=== PATIENT | male | born 2000 | race Caucasian/White ===

== ENCOUNTER 2019-02-01 16:02 | Emergency (ER) | payer MEDICAID ==
[~2019-02-01] VITALS: Ht 167.6 cm; Wt 79.4 kg
[2019-02-01 16:02] VITALS: BP 120/75
--- NOTE | 2019-02-01 16:02 | NUR ---
EDMD EVALUATING PT AT BEDSIDE
--- NOTE | 2019-02-01 16:02 | NUR ---
Patient biba to ER bed 8
--- NOTE | 2019-02-01 16:02 | NUR ---
PATIENT BIB ALS TO ER BED 8.
[2019-02-01] MEDS ORDERED: levETIRAcetam 1,000 MG in NACL 0.9% 100 ML IV ONE (16:15)
--- NOTE | 2019-02-01 16:19 | NUR ---
PT BIB EMS FOR SEIZURES, PER EMS HAD X3 EPISODES OF APPROX 1 MIN EACH. ON ARRIVAL PT A/OX4, SLOW TO RESPOND, PUPILS PERRLA 3MM. +NAUSEA. DENIES LOC/HITTING HEAD. ADMITS HE MISSED A FEW DOSES OF KEPPRA THIS WEEK. LAST DOSE WAS THIS MORNING. PT DENIES N/V/D; SKIN IS INTACT, PINK/WARM/DRY; AAOX4, PERRL, WITH EVEN AND STEADY GAIT; LUNGS CLEAR BL, BREATHING UNLABORED; HR EVEN AND REGULAR, BL PERIPHERAL PULSES PRESENT; BS ACTIVE X4, NO TENDERNESS TO PALPATION, NO HEPATOSPLENOMEGALLY PALPATED, RESONANT TO PERCUSSION; PT DENIES ANY FEVER, CP, SOB, OR COUGH AT THIS TIME; VSS; PATIENT POSITIONED FOR COMFORT; HOB ELEVATED; BEDRAILS UP X2; BED DOWN.
--- NOTE | 2019-02-01 16:25 | NUR ---
PT TAKEN TO CT
[2019-02-01] MEDS ORDERED: levETIRAcetam 100 MG/ML VIAL IV ONE (16:34)
[2019-02-01 16:48] LABS: BASOPHILS % (AUTO) 0.1 % (0.0-2.0); HEMATOCRIT 43.1 % (36-52); HEMOGLOBIN 14.9 g/dL (12.0-18.0); LYMPHOCYTES # (AUTO) 1.1 K/uL (2.0-11.5); LYMPHOCYTES % (AUTO) 7.9 % (20.5-51.1); MEAN CORPUSCULAR HEMOGLOBIN 32 pg (27-31); MEAN CORPUSCULAR HGB CONC 35 g/dL (33-37); MEAN CORPUSCULAR VOLUME 93.8 fL (80-94); MONOCYTES # (AUTO) 1.1 K/uL (0.8-1.0); MONOCYTES % (AUTO) 7.9 % (1.7-9.3); NEUTROPHILS # (AUTO) 11.6 K/uL (1.8-7.7); NEUTROPHILS % (AUTO) 84.1 % (42.2-75.2); PLATELET COUNT (AUTO) 302 K/uL (140-450); RED CELL DISTRIBUTION WIDTH 13.3 % (11.6-13.7); WHITE BLOOD COUNT (AUTO) 13.8 K/uL (4.5-11.0)
[2019-02-01 17:03] LABS: ANION GAP 19.3 (8-16); CARBON DIOXIDE 22.9 mmol/L (21-32); CREATININE 1.3 mg/dL (0.7-1.3); POTASSIUM 4.2 mmol/L (3.5-5.1)
[2019-02-01 17:57] VITALS: BP 127/75
== END 2019-02-01 18:25 | disposition home or self-care (01) ==
LOC: MED 16:02
DX: G40.909 Epilepsy, unspecified, not intractable, without status epilepticus (principal)
CPT/HCPCS: 36415; 70450; 80048; 85025; 93005; 96374; 99284; J1953

== ENCOUNTER 2019-10-07 16:09 | Inpatient (IN) | payer MEDICAID ==
[~2019-10-07] VITALS: Ht 167.6 cm; Wt 72.6 kg
[2019-10-07 16:09] VITALS: BP 131/93
--- NOTE | 2019-10-07 16:09 | NUR ---
ALEX MASON AND PLACED IN BED 2 BY EMS.
[2019-10-07] MEDS ORDERED: NACL 0.9% 1,000 ML IV ONE (16:20)
[2019-10-07] MEDS ORDERED: LORazepam 1 MG TAB PO ONE (16:20)
--- NOTE | 2019-10-07 16:30 | NUR ---
PT BIBA C/O SZ X TODAY. PT STATES HE WAS WALKING HOME AND HE HAD A SZ. UNKNOWN ON WHO CALLED AND DOESNT REMEMBER WHAT HAPPEN. NO OBVIOUS HEAD INURY OR TURAMA NOTD. NO RESP DISTRESS NOTED. LUNG SOUNDS CLEAR ALL THROUGHOUT. SPO2 100% AIRWAY IS PATENT AND CLEAR. A & O X 4. VSS. PT BIT HIS RIGHT SIDE OF TONGUE NOTED. NKA. PMH: DAVID
[2019-10-07 17:18] LABS: BASOPHILS % (AUTO) 0.3 % (0.0-2.0); EOSINOPHILS % (AUTO) 0.2 % (0.0-4.0); HEMOGLOBIN 14.8 g/dL (12.0-18.0); LYMPHOCYTES # (AUTO) 1.1 K/uL (2.0-11.5); LYMPHOCYTES % (AUTO) 10.6 % (20.5-51.1); MEAN CORPUSCULAR HEMOGLOBIN 33 pg (27-31); MEAN CORPUSCULAR HGB CONC 34 g/dL (33-37); MONOCYTES # (AUTO) 0.6 K/uL (0.8-1.0); MONOCYTES % (AUTO) 5.4 % (1.7-9.3); NEUTROPHILS # (AUTO) 8.6 K/uL (1.8-7.7); NEUTROPHILS % (AUTO) 83.5 % (42.2-75.2); PLATELET COUNT (AUTO) 249 K/uL (140-450); RED BLOOD CELL COUNT(AUTO) 4.49 MIL/uL (4.20-6.10); RED CELL DISTRIBUTION WIDTH 14.3 % (11.6-13.7); WHITE BLOOD COUNT (AUTO) 10.3 K/uL (4.8-10.8)
--- NOTE | 2019-10-07 17:24 | NUR ---
PT RANSFER TO CT VIA [employer].
[2019-10-07 17:34] LABS: CARBON DIOXIDE 26.6 mmol/L (21-32); CHLORIDE 104 mmol/L (98-107); CREATININE 1.1 mg/dL (0.7-1.3); GFR ARICAN-AMERICAN 109 mL/min (>90); GLUCOSE 157 mg/dL (74-106); POTASSIUM 4.6 mmol/L (3.5-5.1); SODIUM SERUM 142 mmol/L (136-145); UREA NITROGEN, BLOOD 7 mg/dL (7-18)
--- NOTE | 2019-10-07 17:34 | NUR ---
CT CALLED AND REPORTED PT IS HAVING A SEIZURE IN CT. DR. JOHNSON MADE AWARE. VERBAL ORDER FOR ATIVAN 1MG IVP TO BE GIVEN. JOHN RUIZ OVER TO CT WITH DR. JOHNSON.
[2019-10-07] MEDS ORDERED: LORazepam 2 MG/ML VIAL ONE (17:35)
[2019-10-07] MEDS ORDERED: LORazepam 2 MG/ML VIAL IVP ONE ×2 (17:35→17:45)
[2019-10-07 17:41] LABS: ASPARTATE AMINOTRANSFERASE 226 U/L (15-37); TOTAL BILIRUBIN 0.6 mg/dL (0.0-1.0)
[2019-10-07 17:45] LABS: SALICYLATE < 2.8 mg/dL (2.8-20.0)
[2019-10-07] MEDS ORDERED: levETIRAcetam 1,000 MG in NACL 0.9% 100 ML IV ONE (17:45)
[2019-10-07 17:46] LABS: ACETAMINOPHEN < 0.5 ug/ml (10-30)
[2019-10-07] MEDS ORDERED: levETIRAcetam 100 MG/ML VIAL IV ONE (17:50)
[2019-10-07] MEDS ORDERED: KEP500 PO (18:06)
[2019-10-07] MEDS ORDERED: NACL 0.9% 1,000 ML IV SCH (18:12)
[2019-10-07] MEDS ORDERED: HYDROcodone/APAP 7.5/325 MG 1 TAB PO PRN (18:15)
[2019-10-07] MEDS ORDERED: ONDANSETRON 4 MG/2 ML VIAL IM/IVP PRN (18:15)
[2019-10-07] MEDS ORDERED: ACETAMINOPHEN 325 MG TAB PO PRN (18:15)
[2019-10-07] MEDS ORDERED: DOCUSATE SODIUM 100 MG GELCAP PO PRN (18:15)
[2019-10-07 18:46] LABS: APPEARANCE,URINE CLEAR (CLEAR); BILIRUBIN,URINE NEGATIVE (NEGATIVE); BLOOD, URINE 1+ (NEGATIVE); COLOR,URINE YELLOW (YELLOW); LEUKOCYTE ESTERASE ,URINE NEGATIVE (NEGATIVE); NITRITE, URINE NEGATIVE (NEGATIVE); UGLUCOSE NEGATIVE (NEGATIVE)
[2019-10-07 18:54] LABS: BARBITURATE, URINE NEG. ng/ml (NEG <=200); BENZODIAZEPINE, URINE NEG. ng/mL (NEG <=200); CANNABINOID, URINE POS. ng/mL (NEG <=50); COCAINE, URINE POS. ng/mL (NEG <=300); OPIATE, URINE NEG. ng/mL (NEG <=2000); PHENCYCLIDINE SCREEN,URINE NEG. ng/mL (NEG <=25)
[2019-10-07] MEDS ORDERED: LEVE750T3 PO (18:56)
[2019-10-07] MEDS ORDERED: LEVE500T18 PO (19:08)
--- NOTE | 2019-10-07 19:15 | NUR ---
Patient will be admitted to care of DR. HOLLIDAY. Admited to TELE. Will go to room 112B. Belongings list completed. Report to JOSEPH JEFF.
--- NOTE | 2019-10-07 19:15 | NUR ---
RECEIVED BEDSIDE REPORT FROM DAY SHIFT NURSE. PATIENT IS AWAKE, ALERT, AND COOPERATIVE. RESPIRATION EVEN UNLABORED ON ROOM AIR. NO DISTRESS NOTED. SKIN IS WARM AND DRY. IV PATENT AND INTACT. HEPARIN DRIP RUNNING AT 6.20ML/HR ON THE RIGHT ARM. LEFT ARM AV FISTULA NOTED. POSITIVE THRILL AND BRUIT. DENIES PAIN. PLAN OF CARE WAS DISCUSSED. ALL SAFETY MEASURES IN PLACE. BED IS AT LOW POSITION. CALL LIGHT WITHIN REACH AND VERBALIZES ITS USE. WILL CONTINUE TO MONITOR. Addendum: 10/07/19 at 2307 by Omar Grossman RN WRONG PATIENT
--- NOTE | 2019-10-07 19:16 | NUR ---
Phuc torres in [facility] - 10/07/19 at 1924 by LEYLA CONTACT INFO FATHER: ESTEFANI,
[2019-10-07 19:17] LABS: MAGNESIUM 2.3 mg/dL (1.8-2.4); PHOSPHORUS 2.1 mg/dL (2.5-4.9); PROTHROMBIN TIME 10.1 secs (10.8-13.4); THYROID STIMULATING HORMONE 0.65 uIU/mL (0.34-3.74)
--- NOTE | 2019-10-07 19:17 | NUR ---
Note melissa in EDM - 10/07/19 at 1924 by LEYLA Patient will be admitted to care of DR. HOLLIDAY. Admited to TELE. Will go to room 112B. Belongings list completed. Report to JOSEPH JEFF.
[2019-10-07 19:20] LABS: RBC,URINE 0-5 /HPF (0-5); WBC,URINE 0-5 /HPF (0-5)
[2019-10-07] MEDS ORDERED: LORazepam 2 MG/ML VIAL IVP PRN (19:20)
--- NOTE | 2019-10-07 19:22 | NUR ---
CONTACT INFO FATHER: ESTEFANI,
--- NOTE | 2019-10-07 19:30 | NUR ---
RECEIVED BEDSIDE REPORT FROM JOHN RUIZ. PATIENT IS SLEEPY AROUSABLE BY NAME AND TOUCH. ADMITTING DIAGNOSIS SEIZURE. RESPIRATION EVEN UNLABORED ON ROOM AIR. NO DISTRESS NOTED. SKIN IS WARM AND DRY. IV PATENT AND INTACT. DENIES PAIN. HEART RATE REGULAR. S1&S2 NOTED. LUNGS SOUNDS CLEAR ON AUSCULTATION. BOWEL SOUNDS PRESENT IN ALL 4 QUADRANTS. ABDOMEN SOFT AND NON-TENDER. LAST BM 10/07/19. MRSA SCREEN DONE. VITALS WERE TAKEN. PLAN OF CARE WAS DISCUSSED. ORIENT PATIENT TO THE ROOM, STAFF, AND CALL LIGHT. ALL SAFETY MEASURES IN PLACE. BED IS AT LOW POSITION. CALL LIGHT WITHIN REACH AND VERBALIZE ITS USE. WILL CONTINUE TO MONITOR.
[2019-10-07 20:00] VITALS: BP 126/44
--- NOTE | 2019-10-07 20:04 | NUR ---
INITIAL ASSESSMENT DONE. PATIENT IS RESTLESS, HAVING ANXIETY. PRN ATIVAN ADMINISTERED PER ORDER. WILL CONTINUE TO MONITOR. Addendum: 10/07/19 at 2305 by Omar Grossman RN WRONG PATIENT.
--- NOTE | 2019-10-07 20:45 | NUR ---
ALL SCHEDULED MEDS WERE GIVEN PER ORDER. NO ASE NOTED. WILL CONTINUE TO MONITOR. Addendum: 10/07/19 at 2306 by Omar Grossman RN WRONG PATIENT
[2019-10-07] MEDS ORDERED: levETIRAcetam 500 MG TAB PO SCH (21:00)
--- NOTE | 2019-10-07 21:21 | NUR ---
DR. WAN ORDER NOT TO GIVE KEPPRA 500MG PO.
--- NOTE | 2019-10-07 21:30 | NUR ---
CHECKED ON PATIENT. PATIENT SLEEPING RESPIRATION EVEN UNLABORED ON ROOM AIR. NO DISTRESS NOTED. WILL CONTINUE TO MONITOR.
--- NOTE | 2019-10-07 22:25 | NUR ---
PATIENT WANTS TO AMA. PER PATIENT STATED HE FEELS BETTER NOW AND WANTS TO GO HOME. EDUCATED THE RISK AND BENEFITS X3 STILL REFUSED. WILL NOTIFY .
--- NOTE | 2019-10-07 22:30 | NUR ---
DR. WAN AT BEDSIDE TALKING TO PATIENT. PATIENT SIGNED AMA FORMS. AWAITING FOR HIS DIRECTOR BUILDING
--- NOTE | 2019-10-07 22:50 | NUR ---
PATIENT LEFT THE FACILITY WITH MOM AND SISTER IN STABLE CONDITION. BELONGINGS WITH HIM.
[2019-10-08 08:12] LABS: HEPATITIS A ANTIBODY IGM Negative (Negative); HEPATITIS B CORE AB TOTAL Negative (Negative); HEPATITIS B SURFACE ANTIBODY Non Reactive (.); HEPATITIS B SURFACE ANTIGEN Negative (Negative)
== END 2019-10-07 22:50 | disposition left against medical advice (07) | DRG 53 ==
LOC: MED 16:09 → MTU 18:15
PROVIDERS: ADMIT General Practice; ATTEND General Practice
DX: G40.909 Epilepsy, unspecified, not intractable, without status epilepticus (principal); F12.99 Cannabis use, unspecified with unspecified cannabis-induced disorder; F19.10 Other psychoactive substance abuse, uncomplicated; F14.10 Cocaine abuse, uncomplicated; Z83.3 Family history of diabetes mellitus; Z82.49 Family history of ischemic heart disease and other diseases of the circulatory system; Z91.19 Patient's noncompliance with other medical treatment and regimen
CPT/HCPCS: 36415; 70450; 71045; 76705; 80053; 80305; 81001; 83735; 84100; 84443; 85025; 85610; 85730; 86704; 86706; 86708; 86709; 86803; 87081; 87340; 93005; 96360; 99285; G0480; G0482; J1953; J2060; J7030; Q0092

== ENCOUNTER 2021-08-01 19:33 | Emergency (ER) | payer MEDICAID ==
[~2021-08-01] VITALS: Ht 172.7 cm; Wt 72.6 kg
[~2021-08-01 19:33] MED LIST: LEVE500T18 PO
[2021-08-01 19:50] VITALS: BP 169/97
--- NOTE | 2021-08-01 19:50 | NUR ---
PT TAKEN TO BED #6
--- NOTE | 2021-08-01 19:50 | NUR ---
BIBA TO ER BED 6
--- NOTE | 2021-08-01 20:19 | NUR ---
21 YO/M BIBA FROM WORK S/P SEIZURE. PATIENT REPORTS HE HAD A HEADACHE THAT OCCURS BEFORE A SEIZRE OCCURS THEN "WAKES UP IN AMBULANCE." PATIENT DOES NOT KNOW IF HE HIT HIS HEAD, NO BUMPS, REDNESS OR SIGNS OF INJURY NOTED TO HEAD. PATIENT PRESENTS AOX4, GCS15, PERRL, S1 S2 PRESENT, SKIN WARM AND DRY, +2 RADIAL PULSES. LUNG SOUNDS CLEAR THROUGHOUT. PATIENT DENIES HEADACHE, DENIES BLURRY VISION, DIZZINESS, SOB, CHEST PAIN OR PAIN. PATIENT REPORTS ALCOHOL, MARIGUANA AND COCAINE USE. VSS, CONNECTED TO MONITOR. PATIENT LAYING IN BED LOCKED IN LOWEST POSITION W X2 SIDERAILS UP FOR PATIENT SAFETY W SEIZURE PRECAUTIONS IN PLACE. BREATHING EVEN AND UNLABORED, NAD NOTED. WILL CONTINUE TO MONITOR. PMH:SEIZURES NKA
--- NOTE | 2021-08-01 20:56 | NUR ---
Patient being evaluated by physician at bedside.
[2021-08-01] MEDS ORDERED: levETIRAcetam 1,000 MG in NACL 0.9% 100 ML IV ONE (21:05)
[2021-08-01 21:19] LABS: BASOPHILS # (AUTO) 0.1 K/uL (0.00-0.22); BASOPHILS % (AUTO) 0.8 % (0.0-2.0); EOSINOPHILS % (AUTO) 0.1 % (0.0-4.0); HEMATOCRIT 43.7 % (36-52); HEMOGLOBIN 14.9 g/dL (12.0-18.0); LYMPHOCYTES # (AUTO) 1.3 K/uL (2.0-11.5); LYMPHOCYTES % (AUTO) 9.2 % (20.5-51.1); MEAN CORPUSCULAR HEMOGLOBIN 33 pg (27-31); MEAN CORPUSCULAR HGB CONC 34 g/dL (33-37); MEAN CORPUSCULAR VOLUME 97.4 fL (80-94); MONOCYTES # (AUTO) 0.8 K/uL (0.8-1.0); NEUTROPHILS # (AUTO) 11.7 K/uL (1.8-7.7); PLATELET COUNT (AUTO) 241 K/uL (140-450); RED BLOOD CELL COUNT(AUTO) 4.49 MIL/uL (4.20-6.10); RED CELL DISTRIBUTION WIDTH 13.3 % (11.6-13.7)
[2021-08-01 21:33] LABS: CREATININE 0.9 mg/dL (0.6-1.3); POTASSIUM 3.6 mmol/L (3.5-5.1)
[2021-08-01] MEDS ORDERED: levETIRAcetam 100 MG/ML VIAL IV ONE (21:37)
[2021-08-01 21:40] LABS: ANION GAP 12.9 (8-16); CARBON DIOXIDE 26.7 mmol/L (21-32)
[2021-08-01 21:44] LABS: NEUTROPHILS % (AUTO) 83.9 % (42.2-75.2)
[2021-08-01] MEDS ORDERED: KEP500 PO (22:07)
[2021-08-01 22:50] VITALS: BP 145/95
--- NOTE | 2021-08-01 22:50 | NUR ---
Patient discharged with v/s stable. Written and verbal after care instructions given and explained. Patient alert, oriented and verbalized understanding of instructions. Ambulatory with steady gait. All questions addressed prior to discharge. ID band removed. Patient advised to follow up with PMD. Rx of KENIXON given. Patient educated on indication of medication including possible reaction and side effects. Opportunity to ask questions provided and answered.
== END 2021-08-01 22:50 | disposition home or self-care (01) ==
LOC: MED 19:33
DX: R56.9 Unspecified convulsions (principal); F19.10 Other psychoactive substance abuse, uncomplicated; F17.210 Nicotine dependence, cigarettes, uncomplicated; Z79.899 Other long term (current) drug therapy; Z71.6 Tobacco abuse counseling
CPT/HCPCS: 36415; 80048; 84484; 85025; 93005; 96365; 99284; G0482; J1953

== ENCOUNTER 2022-05-28 12:12 | Inpatient (IN) | payer MEDICAID ==
[~2022-05-28] VITALS: Ht 170.2 cm; Wt 84.8 kg
[~2022-05-28 12:12] MED LIST changes: +KEP500 PO; -LEVE500T18 PO
--- NOTE | 2022-05-28 12:14 | NUR ---
BIBA BLS TO ER BED 5
[2022-05-28 12:15] VITALS: BP 140/80
--- NOTE | 2022-05-28 12:20 | NUR ---
22 y/o male biblorrie, homeless, pt was released from [facility] today, pt states he had stayed there for 1 week. pt states he is looking for rehab due to drinking alcohol this morning."I drank a 40". reports last seizure was 2 days ago. denies nausea, vomiting, diarrhea. a&o x4, ambulates with minimal assist. lungs clear bl, heart rate even and regular. pt denies any fever, cp, sob, or cough at this time. pt states pain is 0/10 at this time. vss. patient positioned for comfort. hob elevated. bed down. ermd made aware of pt. pmh: seizure, etoh use nka med: non compliant with meds
--- NOTE | 2022-05-28 12:50 | NUR ---
TELEVISION INSTALLER HELPER, AZALIA AT BEDSIDE
--- NOTE | 2022-05-28 12:57 | NUR ---
IMAGING AT BEDSIDE
[2022-05-28 13:24] LABS: BASOPHILS % (AUTO) 0.4 % (0.0-2.0); EOSINOPHILS % (AUTO) 0.2 % (0.0-4.0); HEMATOCRIT 43.3 % (36-52); HEMOGLOBIN 15.2 g/dL (12.0-18.0); LYMPHOCYTES # (AUTO) 2.3 K/uL (2.0-11.5); LYMPHOCYTES % (AUTO) 20.8 % (20.5-51.1); MEAN CORPUSCULAR HEMOGLOBIN 33 pg (27-31); MEAN CORPUSCULAR HGB CONC 35 g/dL (33-37); MEAN CORPUSCULAR VOLUME 94.2 fL (80-94); MONOCYTES # (AUTO) 0.8 K/uL (0.8-1.0); MONOCYTES % (AUTO) 7.8 % (1.7-9.3); NEUTROPHILS # (AUTO) 7.7 K/uL (1.8-7.7); NEUTROPHILS % (AUTO) 70.8 % (42.2-75.2); PLATELET COUNT (AUTO) 370 K/uL (140-450); RED CELL DISTRIBUTION WIDTH 13.7 % (11.6-13.7); WHITE BLOOD COUNT (AUTO) 10.9 K/uL (4.8-10.8)
[2022-05-28 13:53] LABS: ALBUMIN 4.3 g/dL (3.4-5.0); ANION GAP 16.7 (8-16); CARBON DIOXIDE 28.4 mmol/L (21-32); CREATININE 1.1 mg/dL (0.6-1.3); POTASSIUM 3.1 mmol/L (3.5-5.1); TOTAL BILIRUBIN 0.5 mg/dL (0.0-1.0)
[2022-05-28] MEDS ORDERED: VITA1TAB44 PO (14:40)
[2022-05-28] MEDS ORDERED: LEVE750T3 PO (14:40)
[2022-05-28] MEDS ORDERED: CYAN1TAB PO (14:40)
[2022-05-28] MEDS ORDERED: AMOX500C25 PO (14:40)
--- NOTE | 2022-05-28 16:04 | NUR ---
PT AMBULATED TO RESTROOM
--- NOTE | 2022-05-28 16:06 | NUR ---
PT AMBULATED BACK TO ROOM
[2022-05-28] MEDS ORDERED: ACETAMINOPHEN 325 MG TAB PO PRN (16:30)
[2022-05-28] MEDS ORDERED: ONDANSETRON 4 MG/2 ML VIAL IM/IVP PRN (16:30)
[2022-05-28] MEDS ORDERED: ZOLPIDEM 5 MG TAB PO PRN (16:30)
[2022-05-28] MEDS ORDERED: guaiFENesin DM 200/20 MG-10 ML 10 ML UDC PO PRN (16:30)
[2022-05-28] MEDS ORDERED: HYDROcodone/APAP 7.5/325 MG 1 TAB PO PRN (16:30)
[2022-05-28] MEDS ORDERED: DOCUSATE SODIUM 100 MG GELCAP PO PRN (16:30)
--- NOTE | 2022-05-28 16:34 | NUR ---
MED RECON COMPLETED. MEDS PUT IN MED BAG AND HANDED TO PHARMACY
[2022-05-28] MEDS ORDERED: LORazepam 2 MG/ML VIAL IVP SCH (16:35)
[2022-05-28] MEDS ORDERED: MULTIVITAMIN-12 10 ML, FOLIC ACID 1 MG in DEXT 5% / LACT RING 1,000 ML IV ONE (16:35)
[2022-05-28] MEDS: NACL 0.9% 1,000 ML IV SCH (16:43)
[2022-05-28 16:59] LABS: MAGNESIUM 1.6 mg/dL (1.8-2.4); PHOSPHORUS 2.9 mg/dL (2.5-4.9)
--- NOTE | 2022-05-28 17:28 | NUR ---
Patient will be admitted to care of [facility]. Admited to [facility]. Will go to [facility]A. Belongings list completed. Report to LUIZ RUIZ.
[2022-05-28 17:42] LABS: PROTHROMBIN TIME 10.9 secs (10.8-13.4)
--- NOTE | 2022-05-28 17:50 | NUR ---
RECEIVED PATIENT FROM ER NURSE FOR CONTINUITY OF CARE. PT ADMITTED FOR ALCOHOL WITHDRAWAL. AOX4, ABLE TO MAKE NEEDS KNOWN. RESPIRATIONS EVEN AND UNLABORED. ON ROOM AIR NO DISTRESS NOTED. SKIN IS WARM, DRY, AND INTACT. IV SITE ON RH 20 G INFUSING FLUIDS ORDERED. ABD IS SOFT, FLAT, AND TENDER ON LLQ. BOWEL SOUNDS ACTIVE IN ALL QUADRANTS. DENIES PAIN AT THE MOMENT. PLAN OF CARE DISCUSSED. SAFETY PRECAUTIONS IN PLACE. CALL LIGHT WITHIN REACH. WILL CONTINUE TO MONITOR.
[2022-05-28 18:00] VITALS: BP 125/83
[2022-05-28] MEDS ORDERED: FOLIC ACID 5 MG/ML SYR ONE (18:20)
[2022-05-28] MEDS ORDERED: MULTIVITAMIN-12 10 ML VIAL IV ONE ×2 (18:22→18:33)
--- NOTE | 2022-05-28 19:00 | NUR ---
ALL SCHEDULED MEDS GIVEN. PT IS STABLE. NO DISTRESS NOTED. WILL CONTINUE TO MONITOR.
--- NOTE | 2022-05-28 19:30 | NUR ---
RECEIVED REPORT FROM AM NURSE FOR CONTINUITY OF CARE. PT IS STABLE IN BED.A&OX4. DENIES PAIN. ON RM AIR.NAD. RR EVEN AND UNLABORED WITH EQUAL CHEST RISE. GI INTACT. PT'S SKIN IS INTACT. PT IS CONTINENT AND AMBULATORY. ALL SAFETY MEASURES IN PLACE. CALL LIGHT WITHIN REACH. WILL CONTINUE TO MONITOR.
--- NOTE | 2022-05-28 19:38 | NUR ---
ENDORSED TO ELEMENTARY MATH TUTOR NURSE FOR CONTINUITY OF CARE. PT IS STABLE.
--- NOTE | 2022-05-28 19:45 | NUR ---
TEXTED PT HAS BANANA IV BAG INFUSING BUT K= 3.1 RECEIVED ORDER: 40MEQ K- DUR GIVEN PO.
[2022-05-28] MEDS: POTASSIUM CHLORIDE 10 MEQ TABER PO PRN (21:05)
[2022-05-29] VITALS: BP 140/91
--- NOTE | 2022-05-29 | NUR ---
SCHEDULED LIBRIUM GIVEN PO. MRSA SWAB OBTAINED AND ALSO URINE FOR DRUG SCREEN AND UA SENT TO LAB.
[2022-05-29] MEDS: chlordiazePOXIDE 25 MG CAP PO SCH ×4 (00:15→17:11)
[2022-05-29 04:00] VITALS: BP 130/72
[2022-05-29 05:45] LABS: APPEARANCE,URINE CLEAR (CLEAR); BILIRUBIN,URINE NEGATIVE (NEGATIVE); BLOOD, URINE NEGATIVE (NEGATIVE); COLOR,URINE YELLOW (YELLOW); LEUKOCYTE ESTERASE ,URINE NEGATIVE (NEGATIVE); NITRITE, URINE NEGATIVE (NEGATIVE); UGLUCOSE NEGATIVE (NEGATIVE)
[2022-05-29 05:58] LABS: BARBITURATE, URINE NEGATIVE ng/ml (NEG <=200); BENZODIAZEPINE, URINE POSITIVE ng/mL (NEG <=200); CANNABINOID, URINE POSITIVE ng/mL (NEG <=50); COCAINE, URINE NEGATIVE ng/mL (NEG <=300); OPIATE, URINE NEGATIVE ng/mL (NEG <=2000); PHENCYCLIDINE SCREEN,URINE NEGATIVE ng/mL (NEG <=25)
[2022-05-29 07:10] LABS: BASOPHILS % (AUTO) 0.3 % (0.0-2.0); EOSINOPHILS # (AUTO) 0.1 K/uL (0-0.4); EOSINOPHILS % (AUTO) 0.9 % (0.0-4.0); HEMATOCRIT 39.7 % (36-52); HEMOGLOBIN 13.9 g/dL (12.0-18.0); LYMPHOCYTES # (AUTO) 1.9 K/uL (2.0-11.5); LYMPHOCYTES % (AUTO) 18.3 % (20.5-51.1); MEAN CORPUSCULAR HEMOGLOBIN 33 pg (27-31); MEAN CORPUSCULAR HGB CONC 35 g/dL (33-37); MEAN CORPUSCULAR VOLUME 93.9 fL (80-94); MONOCYTES # (AUTO) 1.5 K/uL (0.8-1.0); MONOCYTES % (AUTO) 14.7 % (1.7-9.3); NEUTROPHILS # (AUTO) 6.9 K/uL (1.8-7.7); NEUTROPHILS % (AUTO) 65.8 % (42.2-75.2); PLATELET COUNT (AUTO) 331 K/uL (140-450); RED BLOOD CELL COUNT(AUTO) 4.23 MIL/uL (4.20-6.10); RED CELL DISTRIBUTION WIDTH 13.8 % (11.6-13.7); WHITE BLOOD COUNT (AUTO) 10.4 K/uL (4.8-10.8)
[2022-05-29 07:16] LABS: ANION GAP 12.2 (8-16); CARBON DIOXIDE 32.1 mmol/L (21-32); POTASSIUM 3.3 mmol/L (3.5-5.1)
--- NOTE | 2022-05-29 07:40 | NUR ---
ENDORSED PATIENT TO AM JOSEPH DRIVER FOR CONTINUITY OF CARE. PT IS STABLE. ALL NEEDS MET THROUGHOUT THE SHIFT.
--- NOTE | 2022-05-29 08:12 | NUR ---
PATIENT HAS BEEN SCREENED AND CATEGORIZED MODERATE NUTRITION RISK. PATIENT WILL BE SEEN WITHIN 3-5 DAYS OF ADMISSION. 05/29/22-06/02/[address]
[2022-05-29] MEDS ORDERED: DIAZEPAM PFS 10 MG/2 ML SYR IVP PRN (08:50)
[2022-05-29] MEDS: THIAMINE 100 MG TAB PO SCH (09:20)
[2022-05-29] MEDS: FOLIC ACID 1 MG TAB PO SCH (09:20)
[2022-05-29] MEDS: MULTIVITAMIN 1 TAB PO SCH (09:25)
[2022-05-29] MEDS: PANTOPRAZOLE 40 MG TABEC PO SCH (09:25)
[2022-05-29] MEDS: NACL 0.9% 1,000 ML IV SCH (09:26)
[2022-05-29 10:57] VITALS: BP 133/88
[2022-05-29 16:05] VITALS: BP 133/88
--- NOTE | 2022-05-29 17:23 | NUR ---
Patient asking about home meds Keppra and Amoxicillin to take inpatient? Texted MD about dmitry's concerns.
[2022-05-29 20:00] VITALS: BP 140/97
[2022-05-29] MEDS: POTASSIUM CHLORIDE 10 MEQ TABER PO PRN (20:58)
[2022-05-30] VITALS: BP 133/88
[2022-05-30] MEDS: NACL 0.9% 1,000 ML IV SCH (01:50)
[2022-05-30 04:00] VITALS: BP 126/78
[2022-05-30 05:35] LABS: BASOPHILS # (AUTO) 0.1 K/uL (0.00-0.22); BASOPHILS % (AUTO) 0.7 % (0.0-2.0); EOSINOPHILS # (AUTO) 0.3 K/uL (0-0.4); EOSINOPHILS % (AUTO) 2.3 % (0.0-4.0); HEMATOCRIT 39.3 % (36-52); HEMOGLOBIN 13.6 g/dL (12.0-18.0); LYMPHOCYTES # (AUTO) 3.2 K/uL (2.0-11.5); LYMPHOCYTES % (AUTO) 27.8 % (20.5-51.1); MEAN CORPUSCULAR HEMOGLOBIN 33 pg (27-31); MEAN CORPUSCULAR HGB CONC 35 g/dL (33-37); MEAN CORPUSCULAR VOLUME 94.8 fL (80-94); MONOCYTES # (AUTO) 1.5 K/uL (0.8-1.0); MONOCYTES % (AUTO) 13.2 % (1.7-9.3); NEUTROPHILS # (AUTO) 6.4 K/uL (1.8-7.7); PLATELET COUNT (AUTO) 292 K/uL (140-450); RED BLOOD CELL COUNT(AUTO) 4.15 MIL/uL (4.20-6.10); RED CELL DISTRIBUTION WIDTH 13.5 % (11.6-13.7); WHITE BLOOD COUNT (AUTO) 11.4 K/uL (4.8-10.8)
[2022-05-30 05:41] LABS: ANION GAP 10.4 (8-16); CARBON DIOXIDE 29.5 mmol/L (21-32); CREATININE 1.1 mg/dL (0.6-1.3); POTASSIUM 3.9 mmol/L (3.5-5.1)
--- NOTE | 2022-05-30 07:30 | NUR ---
RECEIVED BEDSIDE REPORT FROM SLURRY CONTROL TENDER NURSE, PT RESTING, NO DISTRESS NOTED, IV TO RIGHT HAND 20G PATNET INTACT, INFUSING NS @ 60ML/HR, INFUSING WELL. PT ON ROOM AIR, NO SOB NOTED, Addendum: 05/30/22 at 0805 by Kimberli Rashid RN INITIAL ASSESSMENT DONE, ALL SAFETY PRECAUTION MET, CALL LIGHT WITHIN REACH, WILL CONTINUE TO MONITOR.
[2022-05-30 08:00] VITALS: BP 128/89
[2022-05-30] MEDS: PANTOPRAZOLE 40 MG TABEC PO SCH (08:49)
[2022-05-30] MEDS: FOLIC ACID 1 MG TAB PO SCH (08:49)
[2022-05-30] MEDS: chlordiazePOXIDE 25 MG CAP PO SCH (08:50)
[2022-05-30] MEDS: THIAMINE 100 MG TAB PO SCH (08:50)
[2022-05-30] MEDS: MULTIVITAMIN 1 TAB PO SCH (08:51)
[2022-05-30] MEDS ORDERED: levETIRAcetam 500 MG TAB PO SCH (09:00)
--- NOTE | 2022-05-30 09:00 | NUR ---
SPOKE TO DR CLARKE REGARDING PT HAS HOME MEDICATIONS KEPPRA 750MG BID, AND AMOXICILLIN 500 Q8H, NOTIFIED DR PER PT HE WILL HAVE DENTAL IMPLANT ON MONDAY AND WAS TOLD HE NEEDS TO TAKE THE ANTIBIOTICS IF NOT THEY WILL NOT BE ABLE TO DO THE PROCEDURE. DR STATED UNDERSTANDING TO CONTINUE MEDICATIONS. WILL CONTINUE WITH ORDERS.
[2022-05-30] MEDS ORDERED: LIB25 PO (10:21)
--- NOTE | 2022-05-30 12:00 | NUR ---
DISCHARGE PAPERS SIGNED, PT STATED UNDERSTANDING. WILL CONTINUE TO MONITOR.
--- NOTE | 2022-05-30 12:12 | NUR ---
RN ENDOCRINOLOGY AT BEDSIDE, PT STATED UNDERSTANDING, MOTHER AT BEDSIDE. IV TAKEN OUT. PT TOLERATED WELL. Addendum: 05/30/22 at 1212 by Kimberli Rashid RN MEDICATIONS RETURNED TO PT.
--- NOTE | 2022-05-30 12:15 | NUR ---
PT LEFT UNIT WITH MOTHER, AMBULATORY, STABLE CONDITION
[2022-05-30] MEDS ORDERED: AMOXICILLIN 500 MG CAP PO SCH (13:00)
--- NOTE | 2022-05-30 13:19 | NUR ---
DC PLANNING: THE PATIENT WAS BIBA FOR ALOC AND CONFUSION WHILE ON THE STREET. H/O SEIZURES WITH OP RX OF KEPPRA, ETOH LEVEL 314, TOX SCREEN POSITIVE FOR CANNABINOIDS. LACTIC ACID 3.9, TRANSMINITIS NOTED. STARTED ON BANANA BAG, LIBRIUM, PER ATTENDING MD PATIENTS MOTHER IS WILLING TO HAVE HIM DC TO HER HOME WHEN HE'S CLINICALLY STABLE. ORDER RECEIVED FOR THE SW TO GIVE ALCOHOL CESSATION RESOURCES, ORDER GIVEN TO THE SW GAYLE. CM WILL FOLLOW.
== END 2022-05-30 12:15 | disposition home or self-care (01) | DRG 816 ==
LOC: MED 12:12 → MMU 16:36 → MTU 17:20
PROVIDERS: ADMIT Student in an Organized Health Care Education/Training Program; ATTEND Student in an Organized Health Care Education/Training Program
DX: T51.91XA Toxic effect of unspecified alcohol, accidental (unintentional), initial encounter (principal); G92.9 Unspecified toxic encephalopathy; E87.2 Acidosis; F10.10 Alcohol abuse, uncomplicated; F19.10 Other psychoactive substance abuse, uncomplicated; E87.6 Hypokalemia; E83.42 Hypomagnesemia; Y90.9 Presence of alcohol in blood, level not specified; G40.909 Epilepsy, unspecified, not intractable, without status epilepticus; Z20.822 Contact with and (suspected) exposure to COVID-19; F10.139 Alcohol abuse with withdrawal, unspecified; Z79.899 Other long term (current) drug therapy; Y92.89 Other specified places as the place of occurrence of the external cause; R74.01 Elevation of levels of liver transaminase levels
CPT/HCPCS: 36415; 71045; 80048; 80053; 80305; 81003; 82150; 83605; 83690; 83735; 83880; 84100; 85025; 85610; 85730; 87081; 93005; 99285; A9153; G0482; J3490

== ENCOUNTER 2022-09-05 20:46 | Emergency (ER) | payer MEDICAID ==
[~2022-09-05] VITALS: Ht 172.7 cm; Wt 77.1 kg
[~2022-09-05 20:46] MED LIST changes: +AMOX500C25 PO; +CYAN1TAB PO; -KEP500 PO; +LEVE750T3 PO; +LIB25 PO; +VITA1TAB44 PO
[2022-09-05 20:50] VITALS: BP 136/77
--- NOTE | 2022-09-05 23:49 | NUR ---
DAYANA SIFUENTES ASSESSING PT IN [facility]
[2022-09-06] MEDS ORDERED: levETIRAcetam 500 MG TAB PO ONE
--- NOTE | 2022-09-06 | NUR ---
HANDED FOOD AND WATER TO PATIENT
--- NOTE | 2022-09-06 00:06 | NUR ---
LAB WITH PATIENT IN B
[2022-09-06] MEDS ORDERED: CRUSHER, PILL MC ONE (00:10)
[2022-09-06 00:20] LABS: BASOPHILS # (AUTO) 0.1 K/uL (0.00-0.22); BASOPHILS % (AUTO) 0.6 % (0.0-2.0); EOSINOPHILS % (AUTO) 0.2 % (0.0-4.0); HEMATOCRIT 46.8 % (36-52); LYMPHOCYTES # (AUTO) 2.6 K/uL (2.0-11.5); LYMPHOCYTES % (AUTO) 25.9 % (20.5-51.1); MEAN CORPUSCULAR HEMOGLOBIN 33 pg (27-31); MEAN CORPUSCULAR HGB CONC 34 g/dL (33-37); MEAN CORPUSCULAR VOLUME 96.9 fL (80-94); MONOCYTES # (AUTO) 0.4 K/uL (0.8-1.0); MONOCYTES % (AUTO) 3.8 % (1.7-9.3); NEUTROPHILS # (AUTO) 6.8 K/uL (1.8-7.7); NEUTROPHILS % (AUTO) 69.5 % (42.2-75.2); PLATELET COUNT (AUTO) 431 K/uL (140-450); RED BLOOD CELL COUNT(AUTO) 4.83 MIL/uL (4.20-6.10); RED CELL DISTRIBUTION WIDTH 16.1 % (11.6-13.7); WHITE BLOOD COUNT (AUTO) 9.8 K/uL (4.8-10.8)
[2022-09-06 00:42] LABS: ANION GAP 20.8 (8-16); CARBON DIOXIDE 26.7 mmol/L (21-32); POTASSIUM 3.5 mmol/L (3.5-5.1)
[2022-09-06] MEDS ORDERED: NACL 0.9% 1,000 ML IV ONE (01:25)
--- NOTE | 2022-09-06 01:45 | NUR ---
PT TO BED 6
[2022-09-06] MEDS ORDERED: LEVE750T3 PO (02:46)
[2022-09-06 06:33] VITALS: BP 128/77
== END 2022-09-06 06:40 | disposition left against medical advice (07) ==
LOC: MED 20:46
DX: F10.129 Alcohol abuse with intoxication, unspecified (principal); R56.9 Unspecified convulsions; E87.1 Hypo-osmolality and hyponatremia; E86.0 Dehydration; Y90.9 Presence of alcohol in blood, level not specified
CPT/HCPCS: 36415; 80048; 85025; 96360; 99283; G0482; J7030

== ENCOUNTER 2022-09-06 10:23 | Emergency (ER) | payer MEDICAID ==
[~2022-09-06] VITALS: Ht 172.7 cm; Wt 99.8 kg
[2022-09-06 10:25] VITALS: BP 127/73
--- NOTE | 2022-09-06 10:32 | NUR ---
PT TO [facility] VIA W/C
--- NOTE | 2022-09-06 13:52 | NUR ---
22 MALE BIBA FROM STREETS. PER EMS BYSTANDERS CALLED 911 STATING PT WAS FOUND LYING ON FLOOR. UPON ARRIVAL PT ADMITS TO CONSUMING "3 SHOTS OF VODKA". PT STATING HX OF SEIZURES STATING HE HAD ONE YESTERDAY. REPORTS TAKING KEPPRA. PT DENIES CP SOB DIZZINESS OR VISION CHANGES. DENIES RECENT TRAUMA OR INJURY. PT ON BEDSIDE MONITOR. SEIZURE PRECAUTIONS IN PLACE.
[2022-09-06 14:20] VITALS: BP 121/68
--- NOTE | 2022-09-06 14:21 | NUR ---
Patient discharged with v/s stable. Written and verbal after care instructions ABOUT SEIZURE given and explained. Patient verbalized understanding. Ambulatory with steady gait. All questions addressed prior to discharge. Advised to follow up with PMD.
== END 2022-09-06 14:21 | disposition home or self-care (01) ==
LOC: MED 10:23
DX: F10.129 Alcohol abuse with intoxication, unspecified (principal); G40.909 Epilepsy, unspecified, not intractable, without status epilepticus; Y90.9 Presence of alcohol in blood, level not specified
CPT/HCPCS: 99283

== ENCOUNTER 2022-10-21 23:58 | Emergency (ER) | payer MEDICAID ==
[~2022-10-21] VITALS: Ht 172.7 cm; Wt 77.1 kg
[2022-10-22] VITALS: BP 146/79
--- NOTE | 2022-10-22 00:12 | NUR ---
PATIENT BIB [employer]. PATIENT EXAMINED BY DR. ANDRADE. PATIENT MEDICALLY CLEARED AND RELEASED IN CUSTODY IN STABLE CONDITION. ORIGINAL PRE-BOOK FORM GIVEN TO OFFICER RICARDO, #[id number].
== END 2022-10-22 00:12 ==
LOC: MED 23:58
DX: Z02.89 Encounter for other administrative examinations (principal)
CPT/HCPCS: 99283